=== PATIENT | male | born 1970 | race Caucasian/White ===

== ENCOUNTER 2017-04-15 10:30 | Inpatient (IN) | payer MEDICARE, OTHER ==
[2017-04-15] MEDS: DILTIAZEM-D5W 125MG/125ML DRIP 125 ML IV ×2 (10:38→15:15)
[2017-04-15] MEDS: DILTIAZEM 25 MG INJ IV (11:30)
[2017-04-15] MEDS: CEFEPIME 2GM/50 ML (PMX) 50 ML IVPB (11:32)
[2017-04-15] MEDS: IPRATROPIUM (NEB) 0.5 MG/2.5 ML AMP NEB (11:33)
[2017-04-15] MEDS: ALBUTEROL 0.083% (NEB) 2.5 MG/3 ML AMP NEB (11:33)
[2017-04-15 11:55] LABS: ADD MAN DIFF? NO
[2017-04-15] MEDS: ONDANSETRON 4 MG INJ IV ×2 (12:05→14:41)
[2017-04-15] MEDS: HYDROmorphONE 1 MG/ML SYG IV ×2 (12:05→14:41)
[2017-04-15 12:06] LABS: WHITE BLOOD COUNT 9.4 10^3/ul (4.8-10.8)
[2017-04-15 12:06] LABS: BASOPHIL # 0.1 10^3/ul (0.0-0.1); BASOPHILS % 0.5 % (0.0-2.0); EOSINOPHILS # 0.1 10^3/ul (0.0-0.5); EOSINOPHILS % 0.5 % (0.0-7.0); HEMATOCRIT 27.4 % (42.0-52.0); HEMOGLOBIN 9.1 g/dl (14.0-18.0); LYMPHOCYTES # 0.9 10^3/ul (0.8-2.9); LYMPHOCYTES % 9.2 % (15.0-51.0); MEAN CORPUSCULAR HEMOGLOBIN 29.7 pg (29.0-33.0); MEAN CORPUSCULAR HGB CONC 33.2 g/dl (32.0-37.0); MEAN CORPUSCULAR VOLUME 89.5 fl (82.0-101.0); MEAN PLATELET VOLUME 9.9 fl (7.4-10.4); MONOCYTE # 0.6 10^3/ul (0.3-0.9); MONOCYTES % 6.8 % (0.0-11.0); NEUTROPHIL # 7.8 10^3/ul (1.6-7.5); NEUTROPHILS % 82.7 % (39.0-77.0); PLATELET COUNT 199 10^3/UL (140-415); RED BLOOD COUNT 3.06 10^6/ul (4.70-6.10); RED CELL DISTRIBUTION WIDTH 15.3 % (11.5-14.5)
[2017-04-15] MEDS: VANCOMYCIN 1 GM (PMX) 250 ML IVPB (12:10)
[2017-04-15 12:28] LABS: ALANINE AMINOTRANSFERASE 30 IU/L (13-69); ALBUMIN/GLOBULIN RATIO 1.05; ALKALINE PHOSPHATASE 106 IU/L (42-121); AMYLASE 61 U/L (11-123); ANION GAP 26 (8-16); ASPARTATE AMINO TRANSFERASE 18 IU/L (15-46); BILIRUBIN,INDIRECT 0.1 mg/dl (0-1.1); BILIRUBIN,TOTAL 0.1 mg/dl (0.2-1.3); BLOOD UREA NITROGEN 102 mg/dl (7-20); CALCIUM 8.7 mg/dl (8.4-10.2); CARBON DIOXIDE 18 mmol/L (21-31); CHLORIDE 98 mmol/L (97-110); CREATININE 10.01 mg/dl (0.61-1.24); GLUCOSE 144 mg/dl (70-220); LIPASE 131 U/L (23-300); SODIUM 136 mmol/L (135-144); TOTAL PROTEIN 7.8 g/dl (6.1-8.1)
[2017-04-15 12:35] LABS: POTASSIUM 5.8 mmol/L (3.5-5.1)
[2017-04-15 12:40] LABS: TROPONIN-I 0.084 ng/ml (0.00-0.12)
[2017-04-15] MEDS: NITROGLYCERIN 2% 1 GM OINT PKT TD (13:38)
[2017-04-15] MEDS: CA CHLORIDE 10% 10 ML SYRINGE IV (13:38)
[2017-04-15] MEDS: ASPIRIN 325 MG TAB PO (13:38)
[2017-04-15] MEDS: NA BICARBONATE 8.4% 50 ML SYG IV (13:39)
[2017-04-15] MEDS: NA POLYST SULFON 15 GM/60 ML BTL PO (13:39)
[2017-04-15 16:02] LABS: ADD UMIC YES; UR AMORPHOUS CRYSTAL FEW /HPF (NONE SEEN); UR ASCORBIC ACID NEGATIVE (NEGATIVE); UR BACTERIA FEW /HPF (NONE SEEN); UR BILIRUBIN (Dip) NEGATIVE (NEGATIVE); UR BLOOD (Dip) 1+ mg/dL (NEGATIVE); UR CLARITY SLIGHTLY CLOUDY (CLEAR); UR COLOR YELLOW (YELLOW); UR GLUCOSE (Dip) 3+ mg/dL (NEGATIVE); UR KETONES (Dip) NEGATIVE (NEGATIVE); UR LEUKOCYTE ESTERASE (Dip) NEGATIVE Leu/ul (NEGATIVE); UR NITRITE (Dip) NEGATIVE (NEGATIVE); UR RBC 7 /HPF (0-5); UR SPECIFIC GRAVITY (Dip) 1.011 (1.003-1.030); UR TOTAL PROTEIN (Dip) 3+ mg/dl (NEGATIVE); UR UROBILINOGEN (Dip) NEGATIVE (NEGATIVE); UR WBC 4 /HPF (0-5)
[2017-04-15] MEDS: NIFEdipine (XL) 30 MG TAB PO (17:42)
[2017-04-15] MEDS ORDERED: DEXTROSE 50% 50 ML SYRINGE IV ×2 (18:00)
[2017-04-15] MEDS ORDERED: GLUCOSE GEL 15 GRAM TUBE PO ×2 (18:00)
[2017-04-15] MEDS ORDERED: GLUCOSE GEL 15 GRAM TUBE BUCCAL (18:00)
[2017-04-15] MEDS ORDERED: GLUCAGON 1 MG INJ IM (18:00)
[2017-04-15] MEDS: CALCIUM ACETATE 667 MG CAP PO (19:06)
[2017-04-15] MEDS: INSULIN ASPART [NOVOLOG] 3 ML PEN SC (19:08)
[2017-04-15] MEDS: GABAPENTIN 100 MG CAP PO (21:00)
[2017-04-15] MEDS: ATORVASTATIN 40 MG TAB PO (21:14)
[2017-04-15] MEDS: APIXABAN 5 MG TABLET PO (21:14)
[2017-04-15] MEDS: INSULIN GLARGINE [LANtus] 3 ML PEN SC (21:17)
[2017-04-15] MEDS: morphine 2 MG INJ IV (21:43)
[2017-04-16 05:07] LABS: HEPATITIS B SURFACE ANTIGEN NEGATIVE (NEGATIVE)
[2017-04-16] MEDS: morphine 2 MG INJ IV ×2 (05:16→16:34)
[2017-04-16] MEDS: ONDANSETRON 4 MG INJ IV (05:18)
[2017-04-16 06:34] LABS: ADD MAN DIFF? NO
[2017-04-16 06:43] LABS: WHITE BLOOD COUNT 12.6 10^3/ul (4.8-10.8)
[2017-04-16 06:43] LABS: ABNORMAL IP MESSAGE 1; BASOPHILS % 0.3 % (0.0-2.0); EOSINOPHILS # 0.1 10^3/ul (0.0-0.5); EOSINOPHILS % 0.9 % (0.0-7.0); HEMATOCRIT 27.6 % (42.0-52.0); HEMOGLOBIN 9.4 g/dl (14.0-18.0); LYMPHOCYTES # 0.6 10^3/ul (0.8-2.9); LYMPHOCYTES % 4.5 % (15.0-51.0); MEAN CORPUSCULAR HEMOGLOBIN 30.1 pg (29.0-33.0); MEAN CORPUSCULAR HGB CONC 34.1 g/dl (32.0-37.0); MEAN CORPUSCULAR VOLUME 88.5 fl (82.0-101.0); MEAN PLATELET VOLUME 9.4 fl (7.4-10.4); MONOCYTE # 1.2 10^3/ul (0.3-0.9); MONOCYTES % 9.3 % (0.0-11.0); NEUTROPHIL # 10.6 10^3/ul (1.6-7.5); NEUTROPHILS % 84.1 % (39.0-77.0); PLATELET COUNT 199 10^3/UL (140-415); POSITIVE DIFF @See below; RED BLOOD COUNT 3.12 10^6/ul (4.70-6.10); RED CELL DISTRIBUTION WIDTH 15.3 % (11.5-14.5)
[2017-04-16 07:03] LABS: ANION GAP 19 (8-16); BLOOD UREA NITROGEN 48 mg/dl (7-20); CALCIUM 8.8 mg/dl (8.4-10.2); CARBON DIOXIDE 28 mmol/L (21-31); CHLORIDE 96 mmol/L (97-110); CREATININE 5.54 mg/dl (0.61-1.24); GLUCOSE 134 mg/dl (70-220); MAGNESIUM 1.8 mg/dl (1.7-2.5); POTASSIUM 3.9 mmol/L (3.5-5.1); SODIUM 139 mmol/L (135-144)
[2017-04-16] MEDS: ACETAMINOPHEN 325 MG TAB PO (07:29)
[2017-04-16] MEDS: CALCIUM ACETATE 667 MG CAP PO ×3 (09:18→18:00)
[2017-04-16] MEDS: APIXABAN 5 MG TABLET PO ×2 (09:18→21:31)
[2017-04-16] MEDS: GABAPENTIN 100 MG CAP PO ×2 (09:19→21:30)
[2017-04-16] MEDS: NIFEdipine (XL) 30 MG TAB PO (09:21)
[2017-04-16] MEDS ORDERED: VANCOMYCIN IV PER PHARMACY XX (09:30)
[2017-04-16] MEDS: INSULIN ASPART [NOVOLOG] 3 ML PEN SC ×3 (09:39→18:00)
[2017-04-16 10:14] LABS: CREATINE KINASE 72 IU/L (23-200)
[2017-04-16 10:26] LABS: CK INDEX 2.5; TROPONIN-I 0.086 ng/ml (0.00-0.12)
[2017-04-16] MEDS: PIPER-TAZO 2.25 GM (PMX) 50 ML IVPB ×3 (10:57→21:38)
[2017-04-16] MEDS: VANCOMYCIN 1 GM in 250 ML IVPB (11:00)
[2017-04-16 13:44] LABS: CREATINE KINASE 73 IU/L (23-200)
[2017-04-16 13:57] LABS: CK INDEX 1.4; TROPONIN-I 0.071 ng/ml (0.00-0.12)
[2017-04-16 14:04] LABS: CK-MB 1.05 ng/ml (0.0-2.4)
[2017-04-16] MEDS: SOD CHLORIDE 0.9% 250 ML IV (18:32)
[2017-04-16] MEDS: INSULIN GLARGINE [LANtus] 3 ML PEN SC (21:00)
[2017-04-16] MEDS: ATORVASTATIN 40 MG TAB PO (21:31)
[2017-04-17] MEDS: CEPASTAT LOZENGE MT ×3 (04:34→21:40)
[2017-04-17] MEDS: GUAIFENESIN/CODEINE 5ML CUP PO (05:22)
[2017-04-17] MEDS: PIPER-TAZO 2.25 GM (PMX) 50 ML IVPB ×3 (06:20→21:43)
[2017-04-17] MEDS: CALCIUM ACETATE 667 MG CAP PO ×3 (08:22→17:14)
[2017-04-17] MEDS: APIXABAN 5 MG TABLET PO ×2 (08:23→20:26)
[2017-04-17] MEDS: GABAPENTIN 100 MG CAP PO ×2 (08:23→20:26)
[2017-04-17] MEDS: INSULIN ASPART [NOVOLOG] 3 ML PEN SC ×3 (08:24→17:14)
[2017-04-17] MEDS: morphine 2 MG INJ IV ×2 (10:00→19:26)
[2017-04-17 12:05] LABS: ADD MAN DIFF? NO
[2017-04-17 12:11] LABS: WHITE BLOOD COUNT 4.7 10^3/ul (4.8-10.8)
[2017-04-17 12:11] LABS: ABNORMAL IP MESSAGE 1; BASOPHILS % 0.6 % (0.0-2.0); EOSINOPHILS # 0.1 10^3/ul (0.0-0.5); EOSINOPHILS % 2.1 % (0.0-7.0); HEMATOCRIT 24.7 % (42.0-52.0); HEMOGLOBIN 8.2 g/dl (14.0-18.0); LYMPHOCYTES # 0.3 10^3/ul (0.8-2.9); LYMPHOCYTES % 7.2 % (15.0-51.0); MEAN CORPUSCULAR HEMOGLOBIN 30.1 pg (29.0-33.0); MEAN CORPUSCULAR HGB CONC 33.2 g/dl (32.0-37.0); MEAN CORPUSCULAR VOLUME 90.8 fl (82.0-101.0); MEAN PLATELET VOLUME 10.2 fl (7.4-10.4); MONOCYTE # 0.4 10^3/ul (0.3-0.9); MONOCYTES % 8.7 % (0.0-11.0); NEUTROPHIL # 3.8 10^3/ul (1.6-7.5); PLATELET COUNT 147 10^3/UL (140-415); POSITIVE DIFF @See below; RED BLOOD COUNT 2.72 10^6/ul (4.70-6.10); RED CELL DISTRIBUTION WIDTH 15.1 % (11.5-14.5)
[2017-04-17 12:30] LABS: ALBUMIN 3.4 g/dl (3.3-4.9); ANION GAP 21 (8-16); BLOOD UREA NITROGEN 63 mg/dl (7-20); CALCIUM 7.7 mg/dl (8.4-10.2); CARBON DIOXIDE 27 mmol/L (21-31); CHLORIDE 92 mmol/L (97-110); GLUCOSE 121 mg/dl (70-220); MAGNESIUM 1.9 mg/dl (1.7-2.5); PHOSPHORUS 7.5 mg/dl (2.5-4.9); POTASSIUM 4.8 mmol/L (3.5-5.1); SODIUM 135 mmol/L (135-144)
[2017-04-17] MEDS: HEPARIN 1000 UNITS/ML 10 ML INJ CATHETER (15:22)
[2017-04-17] MEDS: ONDANSETRON 4 MG INJ IV (19:27)
[2017-04-17] MEDS: INSULIN GLARGINE [LANtus] 3 ML PEN SC (20:22)
[2017-04-17] MEDS: ATORVASTATIN 40 MG TAB PO (20:26)
[2017-04-17] MEDS ORDERED: HYDROCODONE/APAP (7.5/325) TAB PO (22:30)
[2017-04-18] MEDS: PIPER-TAZO 2.25 GM (PMX) 50 ML IVPB (05:28)
[2017-04-18] MEDS: ONDANSETRON 4 MG INJ IV ×2 (05:39→09:53)
[2017-04-18] MEDS: morphine 2 MG INJ IV ×2 (05:44→09:54)
[2017-04-18] MEDS: LEVALBUTEROL (NEB) 0.63 MG/3 ML AMP HHN (06:15)
[2017-04-18] MEDS: CALCIUM ACETATE 667 MG CAP PO ×3 (08:19→18:56)
[2017-04-18] MEDS: APIXABAN 5 MG TABLET PO ×2 (08:20→21:11)
[2017-04-18] MEDS: INSULIN ASPART [NOVOLOG] 3 ML PEN SC ×3 (08:21→18:57)
[2017-04-18] MEDS: GABAPENTIN 100 MG CAP PO ×3 (08:26→21:12)
[2017-04-18 08:51] LABS: ADD MAN DIFF? NO
[2017-04-18 08:57] LABS: ABNORMAL IP MESSAGE 1; BASOPHILS % 0.6 % (0.0-2.0); EOSINOPHILS % 0.6 % (0.0-7.0); HEMATOCRIT 26.9 % (42.0-52.0); HEMOGLOBIN 8.7 g/dl (14.0-18.0); LYMPHOCYTES # 0.3 10^3/ul (0.8-2.9); LYMPHOCYTES % 6.5 % (15.0-51.0); MEAN CORPUSCULAR HEMOGLOBIN 29.6 pg (29.0-33.0); MEAN CORPUSCULAR HGB CONC 32.3 g/dl (32.0-37.0); MEAN CORPUSCULAR VOLUME 91.5 fl (82.0-101.0); MEAN PLATELET VOLUME 9.9 fl (7.4-10.4); MONOCYTE # 0.6 10^3/ul (0.3-0.9); MONOCYTES % 13.8 % (0.0-11.0); NEUTROPHIL # 3.6 10^3/ul (1.6-7.5); NEUTROPHILS % 78.1 % (39.0-77.0); PLATELET COUNT 162 10^3/UL (140-415); POSITIVE DIFF @See below; RED BLOOD COUNT 2.94 10^6/ul (4.70-6.10)
[2017-04-18 08:57] LABS: WHITE BLOOD COUNT 4.6 10^3/ul (4.8-10.8)
[2017-04-18 09:14] LABS: ALBUMIN 3.5 g/dl (3.3-4.9); BLOOD UREA NITROGEN 44 mg/dl (7-20); CARBON DIOXIDE 25 mmol/L (21-31); CHLORIDE 94 mmol/L (97-110); CREATININE 6.38 mg/dl (0.61-1.24); GLUCOSE 121 mg/dl (70-220); PHOSPHORUS 6.7 mg/dl (2.5-4.9)
[2017-04-18 09:17] LABS: VANCOMYCIN,RANDOM 12.4 ug/ml
[2017-04-18 09:38] LABS: ANION GAP 20 (8-16); CALCIUM 8.2 mg/dl (8.4-10.2); SODIUM 134 mmol/L (135-144)
[2017-04-18] MEDS: ACETAMINOPHEN 325 MG TAB PO (09:53)
[2017-04-18] MEDS: VANCOMYCIN 1.25 GM in SODIUM CHLORIDE 0.45 % 250 ML IVPB (11:09)
[2017-04-18] MEDS ORDERED: HYDROCODONE/APAP (5/325) TAB PO (11:30)
[2017-04-18] MEDS: DOCUSATE SODIUM 250 MG CAP PO (12:32)
[2017-04-18] MEDS: SEVELAMER 400 MG TAB PO ×2 (12:55→18:57)
[2017-04-18] MEDS: CEFEPIME 1GM/50 ML (PMX) 50 ML IVPB (16:09)
[2017-04-18] MEDS: LEVOFLOXACIN 250 MG TAB PO (16:23)
[2017-04-18] MEDS: INSULIN GLARGINE [LANtus] 3 ML PEN SC (21:00)
[2017-04-18] MEDS: ATORVASTATIN 40 MG TAB PO (21:12)
[2017-04-18] MEDS: CEPASTAT LOZENGE MT (23:50)
[2017-04-18] MEDS: LORAZEPAM 2 MG INJ IV (23:56)
[2017-04-19] MEDS: LEVOFLOXACIN 250 MG TAB PO (05:28)
[2017-04-19] MEDS: CEPASTAT LOZENGE MT ×2 (07:15→20:35)
[2017-04-19 07:48] LABS: ADD MAN DIFF? NO
[2017-04-19 07:53] LABS: ABNORMAL IP MESSAGE 1; BASOPHILS % 1.1 % (0.0-2.0); EOSINOPHILS # 0.1 10^3/ul (0.0-0.5); EOSINOPHILS % 3.4 % (0.0-7.0); HEMATOCRIT 26.6 % (42.0-52.0); HEMOGLOBIN 8.6 g/dl (14.0-18.0); LYMPHOCYTES # 0.5 10^3/ul (0.8-2.9); LYMPHOCYTES % 12.4 % (15.0-51.0); MEAN CORPUSCULAR HEMOGLOBIN 29.9 pg (29.0-33.0); MEAN CORPUSCULAR HGB CONC 32.3 g/dl (32.0-37.0); MEAN CORPUSCULAR VOLUME 92.4 fl (82.0-101.0); MEAN PLATELET VOLUME 10.3 fl (7.4-10.4); MONOCYTE # 0.7 10^3/ul (0.3-0.9); MONOCYTES % 17.6 % (0.0-11.0); NEUTROPHIL # 2.5 10^3/ul (1.6-7.5); NEUTROPHILS % 65.2 % (39.0-77.0); PLATELET COUNT 180 10^3/UL (140-415); POSITIVE DIFF @See below; RED BLOOD COUNT 2.88 10^6/ul (4.70-6.10); RED CELL DISTRIBUTION WIDTH 14.6 % (11.5-14.5)
[2017-04-19 07:53] LABS: WHITE BLOOD COUNT 3.8 10^3/ul (4.8-10.8)
[2017-04-19 08:20] LABS: ALBUMIN 3.3 g/dl (3.3-4.9); ANION GAP 18 (8-16); BLOOD UREA NITROGEN 60 mg/dl (7-20); CALCIUM 8.2 mg/dl (8.4-10.2); CARBON DIOXIDE 25 mmol/L (21-31); CHLORIDE 93 mmol/L (97-110); CREATININE 8.11 mg/dl (0.61-1.24); GLUCOSE 99 mg/dl (70-220); POTASSIUM 4.8 mmol/L (3.5-5.1); SODIUM 131 mmol/L (135-144)
[2017-04-19] MEDS: SEVELAMER 400 MG TAB PO ×3 (08:47→17:46)
[2017-04-19] MEDS: CALCIUM ACETATE 667 MG CAP PO ×3 (08:47→17:46)
[2017-04-19] MEDS: GABAPENTIN 100 MG CAP PO ×2 (08:55→20:36)
[2017-04-19] MEDS: APIXABAN 5 MG TABLET PO ×2 (08:55→20:33)
[2017-04-19] MEDS: DOCUSATE SODIUM 250 MG CAP PO (08:55)
[2017-04-19] MEDS: INSULIN ASPART [NOVOLOG] 3 ML PEN SC ×3 (09:32→17:48)
[2017-04-19] MEDS: LEVALBUTEROL (NEB) 0.63 MG/3 ML AMP HHN (09:59)
[2017-04-19] MEDS: CEFEPIME 1GM/50 ML (PMX) 50 ML IVPB (17:47)
[2017-04-19] MEDS: ATORVASTATIN 40 MG TAB PO (20:36)
[2017-04-19] MEDS: INSULIN GLARGINE [LANtus] 3 ML PEN SC (20:44)
[2017-04-20] MEDS: CEPASTAT LOZENGE MT ×2 (01:06→04:47)
[2017-04-20] MEDS: LORAZEPAM 2 MG INJ IV (04:47)
[2017-04-20] MEDS: LEVOFLOXACIN 250 MG TAB PO (06:07)
[2017-04-20] MEDS: SEVELAMER 400 MG TAB PO (07:56)
[2017-04-20] MEDS: CALCIUM ACETATE 667 MG CAP PO (07:57)
[2017-04-20] MEDS: INSULIN ASPART [NOVOLOG] 3 ML PEN SC (08:05)
[2017-04-20] MEDS: APIXABAN 5 MG TABLET PO (09:34)
[2017-04-20] MEDS: DOCUSATE SODIUM 250 MG CAP PO (09:34)
[2017-04-20] MEDS: GABAPENTIN 100 MG CAP PO (09:34)
== END 2017-04-20 11:48 | disposition home or self-care (01) | DRG 871 ==
LOC: TEL 04-16 13:58 → MS4 04-19 18:46 → E/R 10:30
PROC: 5A1D70Z Performance of Urinary Filtration, Intermittent, Less than 6 Hours Per Day (ICD-10-PCS; principal; 2017-04-16)
DX: A41.9 Sepsis, unspecified organism (principal); J18.9 Pneumonia, unspecified organism; I13.2 Hypertensive heart and chronic kidney disease with heart failure and with stage 5 chronic kidney disease, or end stage renal disease; N18.6 End stage renal disease; I42.9 Cardiomyopathy, unspecified; I50.20 Unspecified systolic (congestive) heart failure; E11.22 Type 2 diabetes mellitus with diabetic chronic kidney disease; J21.9 Acute bronchiolitis, unspecified; I48.0 Paroxysmal atrial fibrillation; D69.6 Thrombocytopenia, unspecified; E11.40 Type 2 diabetes mellitus with diabetic neuropathy, unspecified; E87.5 Hyperkalemia; E66.01 Morbid (severe) obesity due to excess calories; E87.70 Fluid overload, unspecified; D64.9 Anemia, unspecified; E78.5 Hyperlipidemia, unspecified; F17.200 Nicotine dependence, unspecified, uncomplicated; G56.11 Other lesions of median nerve, right upper limb; H54.8 Legal blindness, as defined in USA; I25.10 Atherosclerotic heart disease of native coronary artery without angina pectoris; J20.9 Acute bronchitis, unspecified; R09.02 Hypoxemia; R55 Syncope and collapse; R91.1 Solitary pulmonary nodule; Z68.34 Body mass index [BMI] 34.0-34.9, adult; Z99.2 Dependence on renal dialysis; Z79.02 Long term (current) use of antithrombotics/antiplatelets; Z79.4 Long term (current) use of insulin
CPT/HCPCS: 71045; 71250; 80048; 80053; 80069; 80202; 81001; 82150; 82550; 82553; 82962; 83605; 83690; 83735; 84100; 84484; 85025; 87040; 87086; 87340; 87400; 90935; 93005; 93306; 94640; 94664; 96372; 96374; 96375; 96376; 99291-25